=== PATIENT | female | born 1990 | race Caucasian/White ===

== ENCOUNTER → 2018-06-13 | Outpatient (CLI) | payer OTHER ==
[~2018-06-13] MED LIST: Ferrous Sulfat325 M2 PO; PNV PRENATAL P1 EACH PO
[2018-06-15 22:09] LABS: CHLAMYDIA TRACHOMATIS, NAA Negative (Negative); NEISSERIA GONORRHOEAE, NAA Negative (Negative)
== END | disposition home or self-care (01) ==
LOC: LAB 14:42 → LAB SHORT 14:42
PROVIDERS: Obstetrics & Gynecology
DX: Z34.81 Encounter for supervision of other normal pregnancy, first trimester (principal)
CPT/HCPCS: 87491; 87591; G0123

== ENCOUNTER 2019-01-24 06:20 | Inpatient (IN) | payer OTHER ==
[~2019-01-24] VITALS: Ht 160 cm; Wt 0.1 kg
[2019-01-24 07:02] LABS: BASOPHILS ABSOLUTE AUTO 0.02 K/mm3 (0.00-0.23); BASOPHILS PERCENT AUTO 0 % (0-2); EOSINOPHILS ABSOLUTE AUTO 0.12 K/mm3 (0.00-0.68); EOSINOPHILS PERCENT AUTO 1 % (0-6); Hematocrit 36.1 % (33.0-51.0); Hemoglobin 12.3 g/dL (11.5-16.0); IMMATURE GRAN ABSOLUTE AUTO 0.05 K/mm3 (0.00-0.10); IMMATURE GRAN PERCENT AUTO 1 % (0-1); LYMPHOCYTES ABSOLUTE AUTO 1.98 K/mm3 (0.84-5.20); LYMPHOCYTES PERCENT AUTO 19 % (21-46); MONOCYTES PERCENT AUTO 5 % (4-13); Mean Corpuscular HGB Conc 34.1 g/dL (31.5-36.5); Mean Corpuscular Volume 97 fL (80-100); Mean Platelet Volume 10.9 fL (9.1-12.4); NEUTROPHILS PERCENT AUTO 74 % (41-73); Platelet Count 166 K/mm3 (150-400); RDW Coefficient Variation 13.6 % (11.7-14.2); RDW Standard Deviation 48.4 fL (35.1-46.3); Red Blood Cell Count 3.73 M/mm3 (3.80-5.20); White Blood Cell Count 10.37 K/mm3 (4.00-11.30)
--- NOTE | 2019-01-24 14:06 | NUR ---
THIS PATIENT GAVE ME PERMISSION TO PROVIDE CARE TO HER ON 01/24/19.
--- NOTE | 2019-01-24 20:11 | NUR ---
PATIENT STATES SHE FEELS NUMBNESS AND TINGLING IN LEGS FROM EPIDURAL. PATIENT HAS SOME MOVEMENT IN LEFT LEG, VERY MINIMAL MOVMENT IN RIGHT LEG.
--- NOTE | 2019-01-24 21:00 | NUR ---
PATIENT ABLE TO STAND AT BEDSIDE, LEGS UNSTABLE AND UNABLE TO WALK. HAD PATIENT SIT IN CHAIR AND WHEELED TO BATHROOM, TRANSFERED TO [facility] FOR FIRST VOID. PATIENT VOIDING WITHOUT DIFFICULY.
--- NOTE | 2019-01-24 23:16 | NUR ---
PATIENT UP AND TO THE BATHROOM, STEADY ON LEGS.
[2019-01-25 05:25] LABS: BASOPHILS ABSOLUTE AUTO 0.04 K/mm3 (0.00-0.23); BASOPHILS PERCENT AUTO 0 % (0-2); EOSINOPHILS ABSOLUTE AUTO 0.14 K/mm3 (0.00-0.68); EOSINOPHILS PERCENT AUTO 1 % (0-6); Hematocrit 37.3 % (33.0-51.0); Hemoglobin 12.3 g/dL (11.5-16.0); IMMATURE GRAN ABSOLUTE AUTO 0.04 K/mm3 (0.00-0.10); IMMATURE GRAN PERCENT AUTO 0 % (0-1); LYMPHOCYTES ABSOLUTE AUTO 1.95 K/mm3 (0.84-5.20); LYMPHOCYTES PERCENT AUTO 19 % (21-46); MONOCYTES ABSOLUTE AUTO 0.59 K/mm3 (0.16-1.47); MONOCYTES PERCENT AUTO 6 % (4-13); Mean Corpuscular HGB 32.3 pg (26.0-34.0); Mean Corpuscular Volume 98 fL (80-100); Mean Platelet Volume 10.5 fL (9.1-12.4); NEUTROPHILS ABSOLUTE AUTO 7.74 K/mm3 (1.96-9.15); NEUTROPHILS PERCENT AUTO 74 % (41-73); Platelet Count 158 K/mm3 (150-400); RDW Coefficient Variation 13.9 % (11.7-14.2); RDW Standard Deviation 49.4 fL (35.1-46.3); Red Blood Cell Count 3.81 M/mm3 (3.80-5.20)
--- NOTE | 2019-01-25 08:31 | NUR ---
ASSUMED CARE BUT PATIENT STILL SLEEPING. WILL ASSESS WHEN AWAKE.
[2019-01-25] MEDS ORDERED: IBU800 MG PO (08:35)
--- NOTE | 2019-01-25 11:45 | NUR ---
CONSULT. BABY IS ABOUT 12 HOURS OLD AND STARTING TO WAKEN FOR FEEDINGS. SHE ATTEMPTED BF WITH FIRST CHILD BRIEFLY, DID PUMP FOR A COUPLE OF MONTHS. THIS BABY IS 10#, SLOW TO COORDINATE HIS SUCK AND THEN THE SUCTION IS WEAK. VAGUE ROOTING BEHAVIOR. ATTEMPTED DIRECT LATCH AND HE BECAME FRUSTRATED WITH INABILITY TO PULL NIPPLE INTO HIS MOUTH. INSTRUCT/DEMO HOW TO SELF EBM TO HELP ENTICE A LATCH, VERY SMALL DROPS OF COLOSTRUM AVAILABLE. INSTRUCT/DEMO USE OF SHIELD, USE OF FEEDING TUBE WIHT SYRINGE OF FORMULA, ONLY 10CC TODAY AND INCREASE AMOUNT BY 10CC DAILY/FEEDING UNTIL MILK IS IN WELL, THEN STOP SNS. BABY DID INCREASE SUCKING SOME WHEN FORMULA ADDED, NOT VIGOROUS AND HE DID CHOKE FAIRLY EASILY. LATCH CONTINUED SOMEWHAT NARROW. MOM NEEDING ASSISTANCE TO KEEP HIM IN PROPER ALIGNMENT WITH THE SHIELD AND BREAST. INSTURCT IN CHANGES TO EXPECT DURING THE FIRST WEEK WITH BABY AND WITH FEEDINGS AND REFERRED TO BF BROCHURE AND PAGE 18 OF BF [employer] FOR PHOTOS AND INFORMATION. QUESTIONS ANSWERED. ENCOURAGED TO ASK FOR ASSISTANCE WHEN HE WAKENS TO FEED AGAIN.
--- NOTE | 2019-01-26 09:34 | NUR ---
BOTTLE FEEDING AND PUMPING EDUCATION HANDOUTS ON HANDS ON PUMPING AND BOTTLE FEEDING GIVEN.
--- NOTE | 2019-01-26 10:02 | NUR ---
DISCHARGE PARENTS VERBALIZE UNDERSTANDING OF DC INSTRUCTIONS AND FOLLOW UP APPOINTMENTS. STABLE. NO COMPALINTS. DC HOME STABLE
== END 2019-01-26 09:54 | disposition home or self-care (01) | DRG 807 ==
LOC: BC 06:20
PROVIDERS: ADMIT Obstetrics & Gynecology
PROC: 10E0XZZ Delivery of Products of Conception, External Approach (ICD-10-PCS; principal; 2019-01-24)
PROC: 0KQM0ZZ Repair Perineum Muscle, Open Approach (ICD-10-PCS; 2019-01-24)
PROC: 3E033VJ Introduction of Other Hormone into Peripheral Vein, Percutaneous Approach (ICD-10-PCS; 2019-01-24)
DX: O70.1 Second degree perineal laceration during delivery (principal); Z37.0 Single live birth; Z3A.40 40 weeks gestation of pregnancy
CPT/HCPCS: 36415; 51702; 85025; 85460; J0290; J1885; J2210; J2405; J2590; J2790; J3010; J7120

== ENCOUNTER → 2020-03-20 | Outpatient (CLI) | payer OTHER ==
[~2020-03-20] MED LIST changes: +IBU800 MG PO
[2020-03-20 19:59] LABS: BASOPHILS ABSOLUTE AUTO 0.04 K/mm3 (0.00-0.23); BASOPHILS PERCENT AUTO 1 % (0-2); EOSINOPHILS ABSOLUTE AUTO 0.18 K/mm3 (0.00-0.68); EOSINOPHILS PERCENT AUTO 2 % (0-6); Hematocrit 39.3 % (33.0-51.0); Hemoglobin 12.9 g/dL (11.5-16.0); IMMATURE GRAN ABSOLUTE AUTO 0.02 K/mm3 (0.00-0.10); IMMATURE GRAN PERCENT AUTO 0 % (0-1); LYMPHOCYTES ABSOLUTE AUTO 2.45 K/mm3 (0.84-5.20); LYMPHOCYTES PERCENT AUTO 29 % (21-46); MONOCYTES ABSOLUTE AUTO 0.46 K/mm3 (0.16-1.47); MONOCYTES PERCENT AUTO 6 % (4-13); Mean Corpuscular HGB 30.9 pg (26.0-34.0); Mean Corpuscular HGB Conc 32.8 g/dL (31.5-36.5); Mean Corpuscular Volume 94 fL (80-100); Mean Platelet Volume 10.1 fL (9.1-12.4); NEUTROPHILS ABSOLUTE AUTO 5.26 K/mm3 (1.96-9.15); NEUTROPHILS PERCENT AUTO 63 % (41-73); Platelet Count 312 K/mm3 (150-400); RDW Standard Deviation 45.2 fL (35.1-46.3); Red Blood Cell Count 4.17 M/mm3 (3.80-5.20); White Blood Cell Count 8.41 K/mm3 (4.00-11.30)
== END | disposition home or self-care (01) ==
LOC: LAB 18:41 → LAB SHORT 18:41
PROVIDERS: Physician Assistant
DX: F41.8 Other specified anxiety disorders (principal)
CPT/HCPCS: 82306; 84443; 85025

== ENCOUNTER → 2024-06-28 | Outpatient (CLI) | payer OTHER ==
[2024-06-28 13:40] LABS: BASOPHILS ABSOLUTE AUTO 0.06 K/mm3 (0.00-0.23); BASOPHILS PERCENT AUTO 1 % (0-2); EOSINOPHILS PERCENT AUTO 5 % (0-6); Hematocrit 40.1 % (33.0-51.0); Hemoglobin 13.6 g/dL (11.5-16.0); IMMATURE GRAN ABSOLUTE AUTO 0.02 K/mm3 (0.00-0.10); IMMATURE GRAN PERCENT AUTO 0 % (0-1); LYMPHOCYTES ABSOLUTE AUTO 1.63 K/mm3 (0.84-5.20); LYMPHOCYTES PERCENT AUTO 20 % (21-46); MONOCYTES ABSOLUTE AUTO 0.25 K/mm3 (0.16-1.47); MONOCYTES PERCENT AUTO 3 % (4-13); Mean Corpuscular HGB 31.2 pg (26.0-34.0); Mean Corpuscular HGB Conc 33.9 g/dL (31.5-36.5); Mean Corpuscular Volume 92 fL (80-100); NEUTROPHILS ABSOLUTE AUTO 5.67 K/mm3 (1.96-9.15); NEUTROPHILS PERCENT AUTO 71 % (41-73); Platelet Count 338 K/mm3 (150-400); RDW Coefficient Variation 12.5 % (11.7-14.2); RDW Standard Deviation 42.5 fL (35.1-46.3); Red Blood Cell Count 4.36 M/mm3 (3.80-5.20); White Blood Cell Count 8.03 K/mm3 (4.00-11.30)
[2024-06-28 17:38] LABS: Albumin, Blood 3.9 g/dL (3.4-5.0); Albumin/Globulin Ratio 1.1 (0.8-1.8); Alk Phos 82 U/L (50-136); Anion Gap 9 mmol/L (3-11); Bilirubin, Total 0.5 mg/dL (0.1-1.0); Blood Urea Nitrogen 10 mg/dL (8-24); Bun/Creatinine Ratio 14.6 (12.0-20.0); CHOL/HDL RATIO 4.8; CO2, Blood 25 mmol/L (21-32); Calcium, Blood 9.3 mg/dL (8.5-10.1); Chloride, Blood 108 mmol/L (98-108); Cholesterol 197 mg/dL (50-200); Creatinine, Blood 0.69 mg/dL (0.40-1.00); Globulin, Blood 3.7 g/dL (2.2-4.0); Glomerular Filtration Rate 117 (60-); Glucose, Blood 121 mg/dL (70-99); HDL Cholesterol 41 mg/dL (>39); LDL/HDL RATIO 2.8; Low Density Lipoprotein Chol 116 mg/dL (0-110); Potassium, Blood 4.1 mmol/L (3.5-5.5); Sodium, Blood 138 mmol/L (136-145); Total Protein, Blood 7.6 g/dL (6.4-8.2); Triglycerides 198 mg/dL (30-140); Very Low Density Lipoprot Chol 39 mg/dL (6-28)
[2024-06-28 17:48] LABS: Alanine Aminotransfer (ALT/SGP 51 U/L (12-78); Aspartate Aminotrans (AST/SGOT 29 U/L (12-37)
== END ==
LOC: LAB SHORT 09:20 → LAB 09:20
PROVIDERS: Physician Assistant
DX: Z79.899 Other long term (current) drug therapy (principal)
CPT/HCPCS: 80053; 80061; 82306; 83036; 84443; 85025

== ENCOUNTER → 2024-07-10 | Outpatient (CLI) | payer OTHER | LOC: LAB 10:56 → LAB SHORT 10:56 | DX: R11.2 Nausea with vomiting, unspecified (principal) | CPT/HCPCS: 87338 ==

== ENCOUNTER 2024-11-12 07:49 | Day surgery (SDC) | payer OTHER ==
[~2024-11-12] VITALS: Ht 160 cm; Wt 84.0 kg
[~2024-11-12 07:49] MED LIST changes: +ALBU90OI INH; +EFFEXOR XR37.5 MG PO; +FLUTICASONE PRO12 GM INH; +HYDHCL25 PO
[2024-11-12] MEDS ORDERED: Lactated Ringer's 1,000 ML IV ONE ×2 (08:22→09:00)
[2024-11-12] MEDS ORDERED: propofoL 50 ML IV ONE (08:22)
[2024-11-12 10:53] VITALS: BP 99/61
== END 2024-11-12 10:44 | disposition home or self-care (01) ==
LOC: ORSCSDS 07:49
PROVIDERS: Internal Medicine Gastroenterology
PROC: 0DJ08ZZ Inspection of Upper Intestinal Tract, Via Natural or Artificial Opening Endoscopic (ICD-10-PCS; principal; 2024-11-12 09:30)
PROC: 0DJD8ZZ Inspection of Lower Intestinal Tract, Via Natural or Artificial Opening Endoscopic (ICD-10-PCS; principal; 2024-11-12 09:30)
DX: R19.4 Change in bowel habit (principal); R11.2 Nausea with vomiting, unspecified; R10.12 Left upper quadrant pain; R74.01 Elevation of levels of liver transaminase levels; K57.30 Diverticulosis of large intestine without perforation or abscess without bleeding; K44.9 Diaphragmatic hernia without obstruction or gangrene; Z79.899 Other long term (current) drug therapy
CPT/HCPCS: J2704; J7120

== ENCOUNTER → 2025-06-14 | Outpatient (CLI) | payer OTHER ==
[2025-06-14 12:56] LABS: BASOPHILS ABSOLUTE AUTO 0.05 K/mm3 (0.00-0.23); BASOPHILS PERCENT AUTO 1 % (0-2); EOSINOPHILS ABSOLUTE AUTO 0.11 K/mm3 (0.00-0.68); EOSINOPHILS PERCENT AUTO 2 % (0-6); Hematocrit 38.2 % (33.0-51.0); Hemoglobin 13.1 g/dL (11.5-16.0); IMMATURE GRAN ABSOLUTE AUTO 0.01 K/mm3 (0.00-0.10); IMMATURE GRAN PERCENT AUTO 0 % (0-1); LYMPHOCYTES ABSOLUTE AUTO 2.20 K/mm3 (0.84-5.20); LYMPHOCYTES PERCENT AUTO 34 % (21-46); MONOCYTES ABSOLUTE AUTO 0.32 K/mm3 (0.16-1.47); MONOCYTES PERCENT AUTO 5 % (4-13); Mean Corpuscular HGB Conc 34.3 g/dL (31.5-36.5); Mean Corpuscular Volume 92 fL (80-100); NEUTROPHILS ABSOLUTE AUTO 3.85 K/mm3 (1.96-9.15); NEUTROPHILS PERCENT AUTO 59 % (41-73); NRBC ABSOLUTE 0.00 K/mm3 (0.00-0.02); NRBC Auto 0.0 /100 WBC (0.0-0.2); Platelet Count 299 K/mm3 (150-400); RDW Coefficient Variation 12.6 % (11.7-14.2); RDW Standard Deviation 42.2 fL (35.1-46.3)
[2025-06-14 15:07] LABS: Alanine Aminotransfer (ALT/SGP 34 U/L (12-78); Albumin, Blood 4.0 g/dL (3.4-5.0); Albumin/Globulin Ratio 1.2 (0.8-1.8); Anion Gap 8 mmol/L (3-11); Aspartate Aminotrans (AST/SGOT 21 U/L (12-37); Bilirubin, Total 0.9 mg/dL (0.1-1.0); Blood Urea Nitrogen 14 mg/dL (8-24); CHOL/HDL RATIO 3.2; CO2, Blood 25 mmol/L (21-32); Calcium, Blood 9.0 mg/dL (8.5-10.1); Chloride, Blood 107 mmol/L (98-108); Cholesterol 160 mg/dL (50-200); Creatinine, Blood 0.70 mg/dL (0.40-1.00); Globulin, Blood 3.2 g/dL (2.2-4.0); Glucose, Blood 108 mg/dL (70-99); HDL Cholesterol 50 mg/dL (>39); LDL/HDL RATIO 1.9; Low Density Lipoprotein Chol 97 mg/dL (0-110); Potassium, Blood 4.0 mmol/L (3.5-5.5); Sodium, Blood 136 mmol/L (136-145); Thyroid Stimulating Hormone 1.330 uIU/mL (0.360-4.800); Total Protein, Blood 7.2 g/dL (6.4-8.2); Triglycerides 64 mg/dL (30-140); Very Low Density Lipoprot Chol 12 mg/dL (6-28)
== END ==
LOC: LAB SHORT 11:55 → LAB 11:55
PROVIDERS: Physician Assistant
DX: Z51.81 Encounter for therapeutic drug level monitoring (principal); Z79.899 Other long term (current) drug therapy
CPT/HCPCS: 80053; 80061; 82306; 83036; 84443; 85025